=== PATIENT | male | born 1965 | race Caucasian/White ===

== ENCOUNTER 2017-07-06 12:32 | Day surgery (SDC) | payer MEDICARE, MEDICAID ==
--- NOTE | 2017-07-06 07:02 | History and Physical Report ---
DATE: 07/05/2017. CHIEF COMPLAINT AND HISTORY OF CHIEF COMPLAINT: This patient presents with a history of an intractable lumbar radiculitis for permanent implantation of a spinal cord stimulator. A successful trial on 06/02/2017 resulted in 75 to 85 percent pain control. Due to the failure of therapy, he presents today for a full implant. His medical history is chronic. His diagnostics show extensive multilevel disc space abnormalities. All of his conservative therapies had failed. He was not felt to be an appropriate surgical candidate. PAST MEDICAL HISTORY: Peripheral neuropathy, sleep apnea, cerebrovascular disease. SOCIAL HISTORY: Smoking. FAMILY HISTORY: Diabetes, coronary artery disease, cancer. PAST SURGICAL HISTORY: Bariatric surgery, shoulder surgery, hip surgery, knee surgery. MEDICATIONS ON ADMISSION: To be provided. ALLERGIES: Contrast. PHYSICAL EXAMINATION: General: Height is 6 feet and weight is 280 pounds. Vital Signs: Unavailable. HEENT: Within normal limits. Lungs: Clear. Heart: Regular rate and rhythm. Abdomen: Nontender. Musculoskeletal: Examination of the musculoskeletal system shows diffuse tenderness throughout the lumbar spine. Range of motion does cause pain to the low back with extension. A lower extremity component moving toward the left is noted. Sensory garrett appear to be intact. There is some minor reduction to the sensory field sensitivity crossing an L4-L5 pattern to the left. Motor function is intact; it is symmetric and bilateral. Ambulation: No assistive device utilized. Neurologic: Cranial nerves are intact. IMPRESSION: LUMBAR RADICULITIS, ICD-10 CODE M54.16 AND M54.17. PLAN: The patient is here for implant of a spinal cord stimulator after the successful trial and the failure of all other conservative therapies. The potential risks, side effects, and complications have been carefully reviewed and discussed including nerve root injury, spinal cord injury, and spinal headache. Information from the financial manager was provided and reviewed which also carefully outlines and reviews and discusses the risks, side effects, and complications. The patient understands and is moving forward. We will consider the procedure outpatient, although an overnight stay will be evaluated. JOB NUMBER: [id number] cc: Bethany TabaresD
[~2017-07-06 12:32] MED LIST: ACETAMINOPHEN 1,000 MG/100 ML BTL IV ONE; FAMOTIDINE 20MG TABLET PO ONE; MECLIZINE 25 MG TABLET PO ONE; METOCLOPRAMIDE 10 MG TABLET PO ONE; VANCOMYCIN HCL 1,000 MG in DEXTROSE 5 % IN WATER 250 ML IVPB ONE
[2017-07-06] MEDS ORDERED: BUPIVACAINE 0.75% W/EPI MPF 30ML VIAL IVP ONE (12:33)
[2017-07-06] MEDS ORDERED: LIDOCAINE 1% W/EPI 1:200,000 MPF 30ML SQ ONE (12:33)
[2017-07-06] MEDS ORDERED: CEFAZOLIN 1G VIAL IM ONE (12:33)
[2017-07-06] MEDS ORDERED: ACETAMINOPHEN 325 MG TAB PO PRN ×2 (17:55→18:08)
[2017-07-06] MEDS ORDERED: TEMAZEPAM 15 MG CAPSULE PO PRN ×2 (17:55→18:08)
[2017-07-06] MEDS ORDERED: DIPHENHYDRAMINE HCL 25 MG CAPSULE PO PRN ×3 (17:55→18:16)
[2017-07-06] MEDS ORDERED: METOCLOPRAMIDE HCL 10 MG/2 ML VIAL IM PRN (17:55)
[2017-07-06] MEDS ORDERED: OXYCODONE/APAP 10MG-325MG TABLET PO PRN ×2 (17:55→18:08)
[2017-07-06] MEDS ORDERED: HYDROCODONE/APAP 7.5/325MG TABLET PO PRN (17:55)
[2017-07-06] MEDS ORDERED: DIPHENHYDRAMINE HCL IV 50 MG/ML VIAL IM PRN ×2 (17:55→18:08)
[2017-07-06] MEDS ORDERED: AL HYDROX/MAG HYDROX 30ML UD PO PRN (17:55)
[2017-07-06] MEDS ORDERED: HYDROMORPHONE HCL 2 MG/ML VIAL IM PRN ×2 (17:55→18:08)
[2017-07-06] MEDS ORDERED: SENNOSIDES/DOCUSATE SODIUM UD CAPSULE PO PRN ×2 (17:55→18:08)
[2017-07-06] MEDS ORDERED: METOCLOPRAMIDE HCL 10 MG/2 ML VIAL IV PRN (18:08)
[2017-07-06] MEDS ORDERED: CYCLOBENZAPRINE 10MG TABLET PO PRN (18:24)
[2017-07-06] MEDS: HYDROCODONE/APAP 7.5/325MG TABLET PO PRN (20:39)
[2017-07-06] MEDS: GABAPENTIN 300 MG CAPSULE PO SCH (21:03)
[2017-07-06] MEDS ORDERED: ROPINIROLE HCL 1 MG TABLET PO SCH (22:00)
[2017-07-06] MEDS ORDERED: TERAZOSIN HCL 1 MG CAPSULE PO SCH (22:00)
[2017-07-06] MEDS ORDERED: SIMVASTATIN 10MG TABLET PO SCH (22:00)
[2017-07-07] MEDS: HYDROCODONE/APAP 7.5/325MG TABLET PO PRN ×2 (01:54→06:31)
[2017-07-07] MEDS ORDERED: VANCOMYCIN HCL 1,000 MG in 0.9 % SODIUM CHLORIDE 250ML 250 ML IVPB SCH (02:30)
--- NOTE | 2017-07-07 05:33 | Operative Note - Ferro ---
DATE OF SURGERY: 07/06/2017. PREOPERATIVE DIAGNOSIS: INTRACTABLE LUMBAR RADICULITIS, ICD-10 CODE M54.16 AND M54.17. POSTOPERATIVE DIAGNOSIS: INTRACTABLE LUMBAR RADICULITIS, ICD-10 CODE M54.16 AND M54.17. OPERATION: 1. Fluoroscopically guided epidural access at L1-2. Placement of spinal cord stimulator lead 1, a [employer] Infinion 16 with 16 electrodes, positioned left T7. 2. Fluoroscopically guided epidural access at L2-3. Placement of spinal cord stimulator lead 2, a [employer] Infinion 16 with 16 electrodes, positioned right T7. 3. Complex programming of lead 1 over 20 minutes followed by complex programming of lead 2 over 20 minutes. 4. Incision, subcutaneous dissection, and anchoring of lead 1 and lead 2 to the supraspinous fascia using a [employer] locking anchor. 5. Incision, subcutaneous dissection, and creation of subcutaneous pouch at right flank above the belt line. Placement of generator identified as a [employer] programmable rechargeable. 6. Tunnelling between lead pouch into generator pouch, each lead interfaced with generator. 7. Placement of generator pouch, securing to posterior fascia with nonabsorbable suture. Placement of leads into pouch. Closure of both incisions with Vicryl for the fascia and running subcuticular Vicryl for the skin. 8. Dermabond closure approximating the edges of the wounds. 9. Complex programming of internal generator, home use, two stimulators in the recovery room for 20 minutes. SURGEON: Jorge Claudio D.O. ANESTHESIA: Local sedation. ANESTHESIA PROVIDER: Antonio Humphrey CRNA. INDICATION: This patient presents with a history of intractable lumbar radiculitis. Due to the failure of all therapies, a spinal cord stimulator trial was conducted on 06/02/2017 with 75 to 90 percent pain control. Due to the failure of all therapies and the success of the trial, he presents today for implantation of a permanent system. DESCRIPTION OF PROCEDURE: Intravenous line, vital sign monitoring, and intravenous sedation. Prepped and draped with sterile technique. Under imaging the epidural interspaces at 11-12 and 12-1 were marked and infiltrated but could not be entered. The epidural interspaces at 1-2 and 2-3 were infiltrated, and using curved access Epimed needles with loss of resistance the space was accessed. At 1-2 spinal cord stimulator lead 1, a [employer] Infinion 16 with 16 electrodes, was positioned left at T7. With the epidural access at L2-3, spinal cord stimulator lead 2, a [employer] Infinion 16 with 16 electrodes, was positioned right at T7. Complex programming of lead 1 over 20 minutes was followed by complex programming of lead 2 over 20 minutes. This ultimately resulted in a pattern of stimulation across the back and legs. The patient indicated we were in all the right areas. He was given the options to implant, continue to program, or remove. He opted to implant. The questions were repeated with the same response. The skin above and below both needles was infiltrated. An incision was made, and subcutaneous dissection was conducted to the supraspinous fascia. Each of the leads was then anchored to the supraspinous fascia with a [employer] locking anchor after the needle was removed. At the right flank, a site picked by the patient for the generator, the skin was infiltrated. An incision was made and subcutaneous dissection was conducted to form a pouch of suitable size and depth for the generator identified as a [employer] programmable rechargeable. A tunnelling tool was used to carry the two leads into the generator pouch, and each lead was interfaced with a generator. Antibiotic irrigation and Bovie for hemostasis. The generator was placed into the pouch and secured to the posterior fascia with nonabsorbable suture. The leads were placed into their own pouch, and then both incisions were closed with Vicryl for the fascia and running subcuticular Vicryl for the skin. A Dermabond closure was then used to approximate the edges of both wounds. He was transported to the recovery room stable, showing no side effects from the procedure or the sedation. Because of the time of day and the amount of surgery, he will be kept overnight for observation. He will be discharged in the morning. PLAN: 1. The sites are to remain clean and dry. No showering or bathing in any way that would disrupt dressings. If this happens, he is to contact the clinic. 2. Standard medications are to be resumed including Levaquin the antibiotic 500 mg once a day for 14 days. 3. All other instructions were provided. Numbers to contact with problems were given. 4. He will be seen in the office in seven to ten days. Throughout this period of time, or until he is seen, his activities should stay low. No bend, lift, push, or pull. JOB NUMBER: [id number] cc: Bethany Rodriguez
[2017-07-07] MEDS ORDERED: METFORMIN 500 MG TABLET PO SCH (08:00)
[2017-07-07] MEDS: GABAPENTIN 300 MG CAPSULE PO SCH (09:47)
[2017-07-07] MEDS ORDERED: LORATADINE 10 MG TABLET PO SCH (10:00)
[2017-07-07] MEDS ORDERED: LOSARTAN POTASSIUM 25 MG TABLET PO SCH (10:00)
[2017-07-07] MEDS ORDERED: METOPROLOL TART 25 MG TABLET PO SCH (12:00)
--- NOTE | 2017-07-07 15:32 | RADIOLOGY REPORT ---
EXAM: THORACOLUMBAR SPINE, ONE VIEW HISTORY: PAIN STIMULATOR IMPLANT. TECHNIQUE: An AP portable view of the spine was obtained including the lower two thirds of the thoracic spine and the entire lumbar spine. Comparison: Intraoperative radiographs of the spine dated 07/06/17 at 16:37. FINDINGS: A dual lead interspinal stimulator is in place with the stimulator generator located on the right. The tips of the stimulator leads are at the T7 level. There are mild degenerative changes scattered within the visualized spine. IMPRESSION: DUAL LEAD INTERSPINAL STIMULATOR IN PLACE. JOB NUMBER: [id number] MTDD
== END 2017-07-07 10:22 | disposition home or self-care (01) ==
LOC: SUR 12:32 → MEDSURG 17:53 → SUR 07-07 10:22
PROVIDERS: ATTEND Pain Medicine Interventional Pain Medicine
DX: M54.16 Radiculopathy, lumbar region (principal); M54.17 Radiculopathy, lumbosacral region; E11.9 Type 2 diabetes mellitus without complications; Z79.4 Long term (current) use of insulin; E78.00 Pure hypercholesterolemia, unspecified; I10 Essential (primary) hypertension; G25.81 Restless legs syndrome
CPT/HCPCS: 63685; 63650 ×2; 01936; 95972; 36416; 82948; 72020; J3490 ×2; J3370 ×2; J0690; J2765; J7050; J7060

== ENCOUNTER 2019-02-07 09:29 | Day surgery (SDC) | payer MEDICARE, MEDICAID ==
--- NOTE | 2019-02-07 06:58 | History and Physical - Ferro ---
CHIEF COMPLAINT/HISTORY OF CHIEF COMPLAINT: This patient presents with a history of intractable lumbar radiculopathy. Due to the failure of all therapies, the patient presents today for an implanted spinal catheter infusion trial using Hydromorphone to determine if the implantation of a permanent system can be of any value in pain control. PAST MEDICAL HISTORY: Peripheral neuropathy, sleep apnea, and cerebrovascular disease. PAST SURGICAL HISTORY: Bariatric surgery, shoulder surgery, hip surgery, and knee surgery. MEDICATIONS ON ADMISSION: List to be provided. ALLERGIES: CONTRAST. FAMILY/PSYCHOSOCIAL HISTORY: Social history - Smoking. Family history - Diabetes, coronary artery disease, and cancer. SYSTEMS REVIEW: The patient is appropriate in no acute distress. PHYSICAL EXAMINATION: Height is 6', weight is 280. No vital signs. HEENT: Within normal limits. LUNGS: Clear. HEART: Rapid and regular. ABDOMEN: Nontender. MUSCULOSKELETAL: Examination of the musculoskeletal system shows diffuse tenderness throughout the lumbar spine. Range of motion does produce pain throughout the low back and extending into both lower extremities. The incisional site for a spinal cord stimulator and internal generator are noted. Pain pattern to both lower extremities identified. The sensory garrett are intact. NEUROLOGIC: Cranial nerves are intact. IMPRESSION: LUMBAR RADICULOPATHY, ICD-10 CODE M54.16 AND M54.17. PLAN: The patient is here for an implanted spinal catheter infusion trial using Hydromorphone to determine if the implantation of a permanent system can be of any value in sj control. The potential risks, side effects and complications have all been carefully reviewed and discussed. An epidural blood patch will be performed as a prophylactic measure against spinal headache. The patient will lay flat for four, and slowly elevate for one. He understands and an overnight stay will be recommended. The risks, side effects and complications have all been discussed in detail. Information through the insurance job titles was presented and given to the patient for review. Contact with a clinical specialist from [employer] also reviewing the procedure and the potential complications. The patient understands and has consented. JOB NUMBER: [id number] MTDD
[~2019-02-07 09:29] MED LIST changes: -ACETAMINOPHEN 1,000 MG/100 ML BTL IV ONE; +ACETAMINOPHEN 1,000 MG/100 ML BTL IVPB ONE; +CEFAZOLIN 2 Gram 2 GM/50 ML BAG IVPB ONE; +HYDROMORPHONE IV ONE; +HYDROMORPHONE PF 2MG/ML AMP 0.008 MG in 0.9 % SODIUM CHLORIDE 10ML VIA 0.996 ML IV ONE; +SODIUM CHLORIDE 0.9% IV ONE; -VANCOMYCIN HCL 1,000 MG in DEXTROSE 5 % IN WATER 250 ML IVPB ONE
[2019-02-07] MEDS ORDERED: LIDOCAINE 2% MDV (20MG/ML) 20ML VIAL IV ONE (09:30)
[2019-02-07] MEDS ORDERED: MIDAZOLAM HCL 2MG/2ML VIAL IV ONE (09:30)
[2019-02-07] MEDS ORDERED: PROPOFOL 10 MG/ML VIAL IV ONE (09:30)
[2019-02-07] MEDS ORDERED: FENTANYL PF 100MCG/2ML VIAL IV ONE (09:30)
[2019-02-07] MEDS ORDERED: HYDROMORPHONE HCL 2 MG/ML VIAL IV ONE (09:30)
[2019-02-07] MEDS ORDERED: MECLIZINE 25 MG TABLET PO ONE (10:23)
[2019-02-07] MEDS ORDERED: METOCLOPRAMIDE 10 MG TABLET PO ONE (10:23)
[2019-02-07] MEDS ORDERED: FAMOTIDINE 20MG TABLET PO ONE (10:23)
[2019-02-07] MEDS ORDERED: RINGERS SOLUTION,LACTATED 1,000 ML IV ONE ×2 (11:36→12:15)
[2019-02-07] MEDS ORDERED: CEFAZOLIN 0.5 G in 0.9 % SODIUM CHLORIDE 1000ML 500 ML IVP ONE (11:48)
[2019-02-07] MEDS ORDERED: BUPIVACAINE 0.5% W/EPI MPF 30 ML VIAL SQ ONE ×2 (11:49)
[2019-02-07] MEDS ORDERED: LIDOCAINE 1% W/EPI 1:100,000 MDV 20 ML VIAL SQ ONE ×2 (11:49)
[2019-02-07] MEDS ORDERED: HYDROMORPHONE HCL 2 MG/ML VIAL IVP ONE (12:58)
[2019-02-07] MEDS: RINGERS SOLUTION,LACTATED 1,000 ML IV SCH ×2 (14:58→22:09)
[2019-02-07] MEDS ORDERED: NALOXONE 0.4 MG/1 ML VIAL IVP PRN (15:00)
[2019-02-07] MEDS ORDERED: DIPHENHYDRAMINE HCL 25 MG CAPSULE PO PRN ×2 (15:00)
[2019-02-07] MEDS ORDERED: SENNOSIDES/DOCUSATE SODIUM UD CAPSULE PO PRN ×2 (15:00)
[2019-02-07] MEDS ORDERED: HYDROMORPHONE HCL 2 MG/ML VIAL IM PRN ×2 (15:00)
[2019-02-07] MEDS ORDERED: DIPHENHYDRAMINE HCL 50 MG/ML VIAL IVP PRN ×2 (15:00)
[2019-02-07] MEDS ORDERED: METOCLOPRAMIDE 10 MG TABLET PO PRN (15:00)
[2019-02-07] MEDS ORDERED: AL HYDROX/MAG HYDROX 30ML UD PO PRN (15:00)
[2019-02-07] MEDS ORDERED: HYDROCODONE/APAP 7.5/325MG TABLET PO PRN (15:00)
[2019-02-07] MEDS ORDERED: TEMAZEPAM 15 MG CAPSULE PO PRN ×2 (15:00)
[2019-02-07] MEDS ORDERED: ACETAMINOPHEN 325 MG TAB PO PRN ×2 (15:00)
[2019-02-07] MEDS ORDERED: METOCLOPRAMIDE HCL 10 MG/2 ML VIAL IVP PRN (15:00)
[2019-02-07] MEDS ORDERED: OXYCODONE/APAP 10MG-325MG TABLET PO PRN ×2 (15:00)
[2019-02-07] MEDS: HYDROCODONE/APAP 7.5/325MG TABLET PO PRN ×2 (15:06→19:54)
[2019-02-07] MEDS ORDERED: FUROSEMIDE 20 MG TABLET PO PRN (15:17)
[2019-02-07] MEDS ORDERED: ALBUTEROL HFA 8 GM INHALER INH PRN (15:18)
[2019-02-07] MEDS ORDERED: IPRATROPIUM/ALBUTEROL 4 GM INH INH PRN (15:23)
[2019-02-07] MEDS: GABAPENTIN 300 MG CAPSULE PO SCH (19:49)
[2019-02-07] MEDS: CEFAZOLIN 2 Gram 2 GM/50 ML BAG IVPB SCH (19:49)
[2019-02-07] MEDS ORDERED: METOPROLOL TART 25 MG TABLET PO SCH (22:00)
[2019-02-07] MEDS ORDERED: TOPIRAMATE 25MG TABLET PO SCH (22:00)
[2019-02-07] MEDS ORDERED: ATORVASTATIN 20 MG TABLET PO SCH (22:00)
[2019-02-07] MEDS ORDERED: ROPINIROLE HCL 1 MG TABLET PO PRN (22:00)
[2019-02-07] MEDS ORDERED: DOCUSATE SODIUM 100 MG CAPSULE PO SCH (22:00)
[2019-02-08] MEDS: HYDROCODONE/APAP 7.5/325MG TABLET PO PRN ×2 (01:28→08:31)
[2019-02-08] MEDS: GABAPENTIN 300 MG CAPSULE PO SCH ×2 (01:29→07:45)
[2019-02-08] MEDS: CEFAZOLIN 2 Gram 2 GM/50 ML BAG IVPB SCH (03:07)
[2019-02-08] MEDS ORDERED: ONDANSETRON HCL IV 4 MG/2 ML VIAL IVP PRN (05:58)
[2019-02-08] MEDS: RINGERS SOLUTION,LACTATED 1,000 ML IV SCH (06:00)
[2019-02-08] MEDS ORDERED: LORATADINE 10 MG TABLET PO SCH (10:00)
[2019-02-08] MEDS ORDERED: GLIMEPIRIDE 2 MG TABLET PO SCH (10:00)
[2019-02-09] MEDS ORDERED: METFORMIN 500 MG TABLET PO SCH (08:00)
--- NOTE | 2019-02-09 09:00 | Operative Note ---
DATE OF SURGERY: 02/07/2019 PREOPERATIVE DIAGNOSIS: Intractable lumbar radiculopathy, ICD10 code M54.16 and M54.17. OPERATION: 1. Fluoroscopic-guided access spinal space at L4-5, placement of thin-walled spinal catheter T11-12. 2. No myelogram because of contrast allergies. Injection saline through spinal catheter free and easy flow aspirating and injecting through catheter. 3. Spinal opioid bolus hydromorphone 0.006 mg. 4. Incision, subcutaneous dissection, and anchoring of spinal catheter to supraspinous fascia with anchoring device and nonabsorbable suture. 5. Incision, subcutaneous dissection, and creation of subcutaneous pouch at left flank ultimately for pump. Creation of small subcutaneous pouch. 6. Tunneling between midline spinal catheter pouch and left flank pouch extending spinal catheter into flank pouch. 7. Interface spinal catheter with second catheter component by way of a connector. 8. Tunneling second catheter component 6 cm superior to incision exiting skin interfacing external catheter to external pump set to deliver hydromorphone at 0.16 mg a day. 9. Closure of midline incision Stratafix suture 2-0 fascia, 3-0 skin, Dermabond closure. Closure of left flank incision running nylon. 10. Epidural blood patch at L5-S1 using 20 mL autologous blood, sterile technique, left antecubital. Dressings placed securing pump catheter, spinal catheter, and external pump interface under sterile dressings. Patient transported to recovery room stable, flat, pillow under head and knees. No unusual pain patterns. Full functionality of extremities. No obvious side effects. SURGEON: Jorge Claudio DO ANESTHESIA: Local with sedation. ANESTHESIA PROVIDER: Antonio Humphrey INDICATION: This patient presents with a history of intractable lumbar radiculopathy. Due to the failure of all therapies, he is here for an implanted spinal catheter infusion trial with hydromorphone to determine if the implantation of a permanent system can be of any value in pain control. PROCEDURE: Intravenous line, vital sign monitoring, IV sedation. Prepped and draped in sterile technique. Patient positioned prone. Sterile prep, sterile technique. The spinal interspace at L4-5 was marked, infiltrated. A 20-gauge spinal needle paramedian approach with bevel at the long axis was inserted into the spinal space using AP and lateral images. The needle was walked into the spinal space on lateral image. With CSF flow, a thin-walled spinal catheter was advanced atraumatically and positioned at T11-12. Needle slightly retracted to reduce CSF loss. Skin above and below the needle infiltrated, incision made, and subcutaneous dissection was conducted to the supraspinous fascia. The needle was removed and the catheter was anchored at the supraspinous fascia with an anchor and nonabsorbable suture. At the left flank, which ultimately will be the site for the pump, skin infiltrated and incision made and subcutaneous dissection conducted to form a small subcutaneous pouch. The midline spinal catheter was then extended into this flank pouch interfaced with a second catheter component which was tunneled 6 cm superior exiting the skin from this site. The external catheter was then interfaced to an external pump which was set to deliver hydromorphone at 0.16 mg a day. At L5-S1, which was one level below the dural puncture, skin infiltrated and a 17-gauge 5-incision Tuohy needle with loss of resistance into the epidural space. Simultaneously, 20 mL autologous blood drawn sterile technique from the left antecubital. This blood maintaining sterilely placed onto the field and then an epidural blood patch was performed at this level with this blood. The epidural needle was removed. Dressings were then placed after the midline incision was closed using Stratafix suture, 2-0 fascia, 3-0 skin, and a running nylon at the left flank incision. Dermabond was placed over the midline. The dressings were placed securing the catheter and all connections under the sterile dressing. He was transported to the recovery room stable, flat, pillow under head and knees. He was stable. There were no unusual pain patterns. He had full functionality of extremities. He will be kept flat for 4 hours, slowly elevated for 1 and be kept overnight for observation in the morning. DISCHARGE INSTRUCTIONS: 1. Sites to remain clean and dry. No showering or bathing in any way that would disrupt dressings. If it happens, contact the clinic. 2. Standard medications resumed including the antibiotic Levaquin 500 mg once a day for 14 days. 3. Trial will run 2 weeks; 14 days. We will schedule 3 increases in the office. At the end of the trial period, we will either implant the catheter to an implanted pump or remove the implanted catheter. All other instructions provided, numbers to contact if problems given. 4. Spinal opioid side effects of respiratory depression, nausea, vomiting, constipation, urinary retention, lightheadedness, or rash have all been reviewed. He will be monitored and evaluated. MTDD
--- NOTE | 2019-02-12 11:42 | RADIOLOGY REPORT ---
STUDY: Spine 1 view. CLINICAL HISTORY: Status post pain pump trial. TECHNIQUE: A single AP portable spine view of the spine is obtained, including the lumbar and lower thoracic portions. COMPARISON: Same day intraoperative radiographs of the spine. FINDINGS: There is normal bone mineralization. No acute fracture. No lytic or blastic bone lesion. There are mild to moderate degenerative plate changes scattered within the visualized lower thoracic spine. A dual lead interspinal stimulator is in place with leads entering the spinal canal likely at the L1 level. One lead tip projects into the T8 level and the other at the T7-T8 level. There are 4 lumbar-type vertebra and there is a transitional thoracolumbar segment bearing rudimentary ribs, which for the purposes of this examination is designated as T12. Post surgical changes in the left upper quadrant. An intraspinal catheter is in place. Its entrance into the spinal canal is not visualized with confidence. The tip projects at the designated T11-T12 level. IMPRESSION: 1. Four [id number] lumbar-type vertebra. Transitional thoracolumbar segment, designated as T12. 2. Dual lead intraspinal stimulator in place, as well as single intraspinal catheter, discussed above. [facility]
== END 2019-02-08 09:30 | disposition home or self-care (01) ==
LOC: SUR 09:29 → MEDSURG 13:11 → SUR 02-08 09:10
PROVIDERS: ATTEND Pain Medicine Interventional Pain Medicine
DX: M54.16 Radiculopathy, lumbar region (principal); M54.17 Radiculopathy, lumbosacral region; I10 Essential (primary) hypertension; E78.00 Pure hypercholesterolemia, unspecified; E11.9 Type 2 diabetes mellitus without complications; G25.81 Restless legs syndrome; R60.9 Edema, unspecified
CPT/HCPCS: 62350; 01936; 62273; 36416; 82948; 72020; 94760; J2405; J3010; J1170 ×2; J0690 ×2; J3490; J2765; J7030; J7040; J7120

== ENCOUNTER 2019-02-21 10:32 | Day surgery (SDC) | payer MEDICARE, MEDICAID ==
--- NOTE | 2019-02-21 07:27 | History and Physical - Ferro ---
CHIEF COMPLAINT/HISTORY OF CHIEF COMPLAINT: This patient with an ongoing implanted spinal catheter trial was preparing for permanent implant when over the last twenty-four hours he presented to an Emergency Room locally with a diagnosis of cellulitis in his lower extremities. He was placed on a second antibiotic and referred back to us. PAST MEDICAL HISTORY: Peripheral neuropathy, sleep apnea, and cerebrovascular disease. PAST SURGICAL HISTORY: Bariatric surgery, shoulder surgery, hip surgery, knee surgery, and spinal catheter implant. MEDICATIONS ON ADMISSION: List to be provided. ALLERGIES: CONTRAST. FAMILY/PSYCHOSOCIAL HISTORY: Social history - Smoking. Family history - Diabetes, coronary artery disease, and cancer. SYSTEMS REVIEW: The patient is appropriate in no acute distress. PHYSICAL EXAMINATION: Height is 6'8", weight is 280. No vital signs. HEENT: Within normal limits. LUNGS: Clear. HEART: Rapid and regular. ABDOMEN: Nontender. MUSCULOSKELETAL: Examination of the musculoskeletal system shows the dressings for the implanted catheter to be intact. The external infusion device is working appropriately. Lower extremities do show erythematous changes and peripheral edema. NEUROLOGIC: Cranial nerves are intact. IMPRESSION: 1. LUMBAR RADICULOPATHY, ICD-10 CODE M54.16 AND M54.17. 2. IMPLANTED SPINAL CATHETER INFUSION TRIAL INFUSING HYDROMORPHONE. 3. PERIPHERAL EDEMA CELLULITIS. PLAN: Although we were scheduled to implant the device given this patient's advanced notice that at this point it would be best and more prudent to remove the catheter and clear up the cellulitis and then when ready re-implant the pump. The procedure will be considered outpatient and an overnight stay should not be necessary. He will stay on the appropriate antibiotics which have been provided and see his primary for follow-up. JOB NUMBER: [id number] MTDD
[~2019-02-21 10:32] MED LIST changes: +CEFAZOLIN 1 Gram 1 GM/50 ML BAG IVPB ONE; +HYDROMORPHONE HCL 0.04 GM in 0.9 % SODIUM CHLORIDE 10ML VIA 20 ML IV ONE; -HYDROMORPHONE IV ONE; -SODIUM CHLORIDE 0.9% IV ONE
[2019-02-21] MEDS ORDERED: LIDOCAINE 2% MDV (20MG/ML) 20ML VIAL IV ONE (10:33)
[2019-02-21] MEDS ORDERED: FENTANYL PF 100MCG/2ML VIAL IV ONE (10:33)
[2019-02-21] MEDS ORDERED: MIDAZOLAM HCL 2MG/2ML VIAL IV ONE (10:33)
[2019-02-21] MEDS ORDERED: PROPOFOL 10 MG/ML VIAL IV ONE (10:33)
[2019-02-21] MEDS ORDERED: RINGERS SOLUTION,LACTATED 1,000 ML IV ONE ×2 (11:30→14:12)
[2019-02-21] MEDS ORDERED: OXYCODONE/APAP 10MG-325MG TABLET PO ONE (14:51)
--- NOTE | 2019-02-21 17:30 | Operative Note ---
DATE OF SURGERY: 02/21/2019 PREOPERATIVE DIAGNOSES: 1. Lumbar radiculopathy, ICD10 code M54.16 and M54.17. 2. Implanted spinal catheter infusion trial of hydromorphone. 3. Recently diagnosed cellulitis. OPERATION: Fluoroscopic-guided infiltration and removal of implanted spinal catheter. SURGEON: Jorge Claudio DO ANESTHESIA: Local with sedation. ANESTHESIA PROVIDER: Antonio Humphrey INDICATION: This patient presents with a history of intractable lumbar radiculopathy. Due to the failure of all therapies, an implanted spinal catheter infusion trial of hydromorphone was conducted with 75% to 85% pain control. Over the last 2-3 days, this patient was in the emergency room with complaints of swelling, redness, and irritation in his lower extremities. He was evaluated in the emergency room out of the area. A diagnosis of cellulitis, and antibiotics were started in conjunction with the antibiotics he was on for the trial. He presented today. His bilateral lower extremities below the knees were, left in particular, quite erythematous and swollen. Although there was no weeping, it was obvious this was an early cellulitis. At that point, it was felt appropriate to terminate the trial and not implant the pump. PROCEDURE: Intravenous line, vital sign monitoring, IV sedation by Anesthesia. Patient positioned prone. Sterile prep, sterile technique. Under imaging, the midline spinal incision was infiltrated with local. Incision made and subcutaneous dissection was conducted to the catheter anchor. The anchor suture was removed. A purse-string suture placed around the penetration point and the catheter was removed intact. The radiopaque bead or tip of the catheter was identified. Antibiotic irrigation, Bovie for hemostasis. At the left flank, which was an intermediate pouch for the external catheter, skin infiltrated, incision made, and subcutaneous dissection was conducted to the connection interface between internal and external catheters. This was cut and removed by pulling away from the incision. Antibiotic irrigation and Bovie for hemostasis. Both incisions were then closed using Stratafix suture, 2-0 fascia, 3-0 skin, Dermabond closure. He was transported to the recovery room stable. No side effects from the procedure or sedation. When fully awake and alert, he was prepared for discharge. DISCHARGE INSTRUCTIONS: 1. Sites to remain clean and dry. No showering or bathing in any way that would disrupt dressings. If it happens, contact the clinic. 2. Standard medications resumed including the antibiotic Levaquin 500 mg once a day for 14 days. 3. The trial was terminated because of early cellulitis. This patient will be monitored and will be kept on antibiotics. He will be seen by his primary physician and seen by us on followup in 7-10 days. We will evaluate the progress of his cellulitis. Once his cellulitis has continued based upon his request, we can set up a permanent implanted device since he has essentially had a successful trial at this point. All other instructions provided, numbers to contact if problems given. He will be seen in the office. JENNIFER
== END 2019-02-21 15:06 | disposition home or self-care (01) ==
LOC: SUR 10:32
PROVIDERS: ATTEND Pain Medicine Interventional Pain Medicine
DX: M54.16 Radiculopathy, lumbar region (principal); M54.17 Radiculopathy, lumbosacral region; I10 Essential (primary) hypertension; E78.00 Pure hypercholesterolemia, unspecified; E11.9 Type 2 diabetes mellitus without complications; G25.81 Restless legs syndrome; R60.9 Edema, unspecified; J44.9 Chronic obstructive pulmonary disease, unspecified; I50.9 Heart failure, unspecified; K21.9 Gastro-esophageal reflux disease without esophagitis; Z86.73 Personal history of transient ischemic attack (TIA), and cerebral infarction without residual deficits; L03.116 Cellulitis of left lower limb; L03.115 Cellulitis of right lower limb
CPT/HCPCS: J7120